=== PATIENT | female | born 1985 | race Caucasian/White ===

== ENCOUNTER 2021-01-24 11:31 | Emergency (ER) | payer OTHER, SELFPAY ==
--- NOTE | ~2021-01-24 | XR_ITS ---
XR chest 2V 01/24/2021 12:35 Indication: Shortness of breath. Leg swelling. Procedure: 2 view chest Comparison: No prior studies for comparison. Findings: Cardiomegaly. There are right lower lobe infiltrates, most likely atelectasis versus pneumo deon. No significant effusion, edema or pneumothorax. No acute osseous abnormality. Impression: 1: Right lower lobe infiltrates, most likely atelectasis. 2: Cardiomegaly. Reviewed, dictated and finalized at location B. Impression: 1: Right lower lobe infiltrates, most likely atelectasis. 2: Cardiomegaly.
--- NOTE | ~2021-01-24 | US_ITS ---
EXAMINATION:US venous doppler LE BI INDICATION:Leg swelling TECHNIQUE: Multiple grayscale, color flow and Doppler images of the right and left lower extremity de ep venous systems were obtained and reviewed. COMPARISON:No prior studies for comparison. FINDINGS: The common femoral, superficial femoral and popliteal veins demonstrate normal respiratory variation, augmentation and compressibility. Color flow is also seen within the posterior tibial, pe roneal, greater saphenous and profunda veins. IMPRESSION: 1: No lower extremity deep venous thrombosis. Reviewed, dictated and finalized at location B.
[2021-01-24 11:49] VITALS: BP 142/110; PULSE 108; RESP 20; TEMP 36.1; O2SAT 96
[2021-01-24 12:03] VITALS: BP 176/124; PULSE 109; RESP 20; O2SAT 98
--- NOTE | 2021-01-24 12:11 | PC.NURSE ---
pt in [place] 11. reports hx of multiple spider bites to body, with increased edema to BLE and feet. Feet reddened. pt reports she's been walking a lot. denies hx of chf, htn. reports killing a black spider.
--- NOTE | 2021-01-24 13:53 | PC.NURSE ---
phlebotomy called due to patient's blood being unsuccessful
[2021-01-24 14:21] LABS: Basophils Absolute Auto 0.1 K/mm3 (0.0-0.1); Basophils Percent Auto 0.8 % (0.2-1.2); Eosinophils Absolute Auto 0.4 K/mm3 (0-0.3); Eosinophils Percent Auto 4.8 % (0-4.4); Hematocrit 43.7 % (37.0-47.0); Hemoglobin 13.3 g/dL (12.0-15.0); Immature Granulocyte Absolute 0.02 K/mm3 (0.00-0.031); Immature Granulocyte Percent A 0.3 % (0-0.5); Lymphocytes Absolute Auto 2.25 K/mm3 (0.9-3.2); Lymphocytes Percent Auto 30.7 % (18.3-44.2); Mean Corpuscular HGB Conc 30.4 g/dl (32-36); Mean Corpuscular Volume 88.6 fl (80-100); Mean Platelet Volume 10.2 fl (7.4-10.4); Monocytes Absolute Auto 0.5 K/mm3 (0.1-0.6); Monocytes Percent Auto 6.4 % (2.6-8.5); Neutrophils Absolute Auto 4.2 K/mm3 (1.3-6.7); Nucleated Red Blood Cells Absolute Auto 0.1 K/mm3 (0.0-0.012); Nucleated Red Blood Cells Perc 0.7 % (0.0-0.2); Platelet Count Result 333 k/mm3 (150-375); Red Blood Count 4.93 M/mm3 (4.2-5.4); Red Cell Distribution Width 16.3 % (11.5-14.5); White Blood Count 7.3 K/mm3 (4.5-10.0)
[2021-01-24 14:27] LABS: INR 1.1; Prothrombin Time 14.6 Seconds (11.1-14.7)
[2021-01-24 14:28] LABS: Partial Thromboplastin Time 25.7 SECONDS (22.3-36.8)
[2021-01-24 14:29] LABS: Alanine Aminotransferase 67 U/L (4-35); Albumin Level 3.3 g/dL (3.5-5.1); Alkaline Phosphatase 97 U/L (38-126); Anion Gap 6 mmol/L (8-16); Aspartate Amino Transferase 102 U/L (14-36); Bilirubin,Total 1.2 mg/dL (0.2-1.3); Blood Urea Nitrogen 27 mg/dL (7-17); Calcium 8.5 mg/dL (8.4-10.2); Carbon Dioxide 25 mmol/L (22-30); Chloride 107 mmol/L (98-107); Estimated CRCL calculation 97 ml/min; Estimated Glomerular Filt Rate > 60; Glucose 93 mg/dL (65-105); Potassium 3.9 mmol/L (3.4-5.0); Sodium 138 mmol/L (137-145)
[2021-01-24 14:39] LABS: NT Pro B Type Natriuretic Pept 8460 PG/ML (5-100)
[2021-01-24 15:03] VITALS: BP 169/114; PULSE 106; RESP 18; O2SAT 97
--- NOTE | 2021-01-24 15:43 | ED.GENADULT ---
HPI - General Adult General Chief complaint: Skin/Abscess/Foreign Body Stated complaint: flako leg swelling ? bug bites Time Seen by Provider: 01/24/21 12:09 History of Present Illness HPI narrative: Patient is a 35-year-old female who presents ER with lower extremity swelling. New over the last 24 hours. No chest pain or shortness of breath. Patient has history of cervical cancer and has been receiving chemotherapy. She does not know what drug it is. She sees Dr. Wallace at [facility]. Her last chemotherapy was 2 months ago. Patient has noticed some new weeping coming from her left tsai. She also has some redness to her feet. No fevers or chills or sweats. Has never been diagnosed with heart failure. Has not been on diuretics in the past. She has no orthopnea or chest pain/chest pressure. No productive cough. Patient also has scabbing wounds to the arms and legs and abdomen that she reports are new and she thinks are related to a spider bite. Should not see a spider bite her. She denies that she picks her skin despite there being scars that may be evidence of otherwise. There is also some scabbing within the creases of the edema of her lower extremities which makes me think this may be longer standing than she lets on. Related Data Allergies Allergy/AdvReac Type Severity Reaction Status Date / Time No Known Allergies Allergy Verified 01/24/21 12:03 Review of Systems Review of Systems: All systems reviewed & are unremarkable except as noted in HPI and below Constitutional: Constitutional: Denies no additional constitutional complaints, Denies chills and Denies fever(s) ENT: Denies nasal congestion and Denies sore throat Cardiovascular: Cardiovascular: Denies chest pain, Denies rapid heart rate and Denies radiating jaw, neck or arm pain Respiratory: Respiratory: Denies cough and Denies dyspnea Gastrointestinal: Gastrointestinal: Denies abdominal pain, Denies nausea and Denies vomiting Musculoskeletal: Musculoskeletal: Denies muscle cramps Comments: leg edema PMFSH Past Medical History Medical History (Updated 01/24/21 @ 15:49 by David Orantes MD) Cervical cancer Seizures Surgical History Surgical History (Updated 01/24/21 @ 15:47 by David Orantes MD) History of tubal ligation Social History Social History Gender identity (if verbalized by the patient): Female Exam Narrative: Exam Narrative: GENERAL: Well-appearing, obese, and in no acute distress. HEAD: Normocephalic, atraumatic. ENT: Mucous membranes moist. CHEST: Clear to auscultation. No respiratory distress. HEART: Tachycardic and regular normal peripheral pulses. ABDOMEN: Soft, nontender, nondistended. EXTREMITIES: Normal range of motion. 3+ edema with weeping and scabbing. SKIN: Warm, dry, no rash. NEURO: . Alert and oriented x3. PSYCH: Normal mood and affect. Course Course Emergency Course: Discussed the results with the patient and I have asked her to stay in the hospital for further evaluation of what may be heart failure related to chemotherapy. Patient is declined to stay in the hospital and understands that she risks deterioration of her condition and potential . She would like to go home and talk to her family before being admitted to the hospital. I have also contacted her primary care physician to make him aware of the evaluation occurred today. He would recommend that she follow-up. Patient will be prescribed some Lasix for home to help with diuresis. Vital Signs Vital signs: Vital Signs Temperature 97 F L 01/24/21 11:49 Pulse Rate 108 H 01/24/21 11:49 Respiratory Rate 20 01/24/21 11:49 Blood Pressure 142/110 H 01/24/21 11:49 Pulse Oximetry 96 01/24/21 11:49 Temperature 97 F L 01/24/21 11:49 Pulse Rate 106 H 01/24/21 15:03 Respiratory Rate 18 01/24/21 15:03 Blood Pressure 169/114 H 01/24/21 15:03 Pulse Oximetry 97 01/24/21 15:03 Medical Decision Making Vital
--- NOTE | 2021-01-24 15:44 | PC.NURSE ---
patient does not wish to be admitted at this time, at this facility. EDP aware and has spoken to patient at this time.
--- NOTE | 2021-01-24 16:19 | PC.NURSE ---
Pt would like to leave against medical advice. Does not want to be admitted. MD aware and in room to explain risks of leaving [facility], including , permanent disability, and worsening of condition. pt verbalized understanding of all risks. agrees to assume said risk. all belongings returned to pt and pt ambulatory to ED WR with . reports he feet feel better. RX x 2 sent to pt's preferred pharmacy. pt verbalizes understanding re: need to pick up driver prescriptions. a/o x 4. ambulatory c steady, cane-assisted gait out of ED.
== END 2021-01-24 16:29 | disposition left against medical advice (07) ==
PROVIDERS: Emergency Provider Emergency Medicine; PCP Emergency Medicine
DX: I50.9 Heart failure, unspecified (principal); C53.9 Malignant neoplasm of cervix uteri, unspecified; Z79.899 Other long term (current) drug therapy
CPT/HCPCS: 36415; 71046; 80053; 83880; 85025; 85610; 85730; 93970; 99284